=== PATIENT | male | born 1955 | race Caucasian/White ===

== ENCOUNTER 2020-09-20 18:08 | Emergency (ER) | payer MEDICARE, SELFPAY ==
[2020-09-20 18:26] VITALS: BP 188/94; PULSE 93; RESP 16; TEMP 36.7; O2SAT 100
[2020-09-20 18:35] VITALS: BP 188/94; PULSE 93; RESP 16; TEMP 36.7; O2SAT 100
--- NOTE | 2020-09-20 18:45 | ED.DENTAL ---
HPI - Dental/Oral General Chief complaint: Dental/Oral Stated complaint: Dental/Oral Time Seen by Provider: 09/20/20 18:41 Source: patient and RN notes reviewed Mode of arrival: ambulatory Limitations: no limitations History of Present Illness HPI Narrative: 65-year-old male presents with concern for left upper dental pain for 3 days. Reports noticing facial swelling. Reports multiple broken teeth, caries. Reports he saw dentist to have all of his teeth pulled, was not able to afford it. Reports he has had problems with his teeth for many years, has not had an infection for many years. Denies any drooling, difficulty swallowing, headache MD Complaint: tooth pain Related Data Allergies Allergy/AdvReac Type Severity Reaction Status Date / Time No Known Allergies Allergy Verified 09/20/20 18:34 Review of Systems Review of Systems: Narrative: CONSTITUTIONAL: Denies malaise, chills, sweats, or fever. EYES: Denies visual changes ENT: Denies rhinorrhea, congestion, sinus pain, otalgia or sore throat, difficulty swallowing, drooling. Reports left upper dental pain, facial swelling CARDIOVASCULAR: Denies chest pain, palpitations, or edema. RESPIRATORY: Denies cough or dyspnea. SKIN: Denies rash or itching. MUSCULOSKELETAL: Denies myalgia. NEUROLOGIC: Denies numbness, weakness, or headache. All systems reviewed & are unremarkable except as noted in HPI and below PMFSH Comments At time of signature, agree with nursing past medical, surgical, social and family history. There is no relevant family history pertinent to the presenting complaint Exam Narrative: Exam Narrative: GENERAL: Well-appearing, well-nourished, and in no acute distress. HEAD: Normocephalic, atraumatic. EYES: PERRLA, conjunctivae clear ENT: Nares clear. Mucous membranes moist. Oropharynx without edema, erythema or lesions. Tonsils not enlarged and without exudate. Many missing teeth, broken teeth, caries. Left cheek swelling NECK: Supple. No lymphadenopathy. CHEST: No respiratory distress. Speaks in full sentences. HEART: Regular rate and rhythm. SKIN: Warm, dry, no rash. NEURO: Alert and oriented x3. PSYCH: Normal mood and affect Course Course Emergency Course: Patient is aware of diagnosis, understands and agrees to treatment plan. Anticipatory guidance given. Patient agrees to follow-up as directed and is aware of reasons to seek care at the emergency department. Portions of this record may have been created with voice recognition software Vital Signs Vital signs: Vital Signs Temperature 98.1 F 09/20/20 18:26 Pulse Rate 93 09/20/20 18:26 Respiratory Rate 16 09/20/20 18:26 Blood Pressure 188/94 H 09/20/20 18:26 Pulse Oximetry 100 09/20/20 18:26 Temperature 98.1 F 09/20/20 18:35 Pulse Rate 93 09/20/20 18:35 Respiratory Rate 16 09/20/20 18:35 Blood Pressure 188/94 H 09/20/20 18:35 Pulse Oximetry 100 09/20/20 18:35 Reviewed. Pt has been instructed to follow up with his primary care provider within the next week regarding his elevated blood pressure today. MDM - Dental/Oral MDM Narrative Medical decision making narrative: Patients pain and complaint coupled with physical findings are consistant with dentalgia. There are no focal signs of space occupying lesions that are compromising to the airway; no dysphagia, odynophagia, dysphonia, or dyspnea. No uvular deviation or soft palate edema. Patient is non-toxic appearing. The floor of the mouth is soft with no signs of Juan's Angina; no induration below mandible, no neck pain. Patient is without trismus or drooling and able to swallow secretions. Patient is felt appropriate for discharge home with dental follow up. Critical Care Time Critical Care Time Critical Care Time: No Discharge Plan Discharge Clinical Impression: Dental abscess Patient Disposition: Home, Self-Care Condition: Stable Instructions: Antibiotic Form, Dental Abscess (ED) Additiona
== END 2020-09-20 18:53 | disposition home or self-care (01) ==
PROVIDERS: Emergency Provider Nurse Practitioner
DX: K04.7 Periapical abscess without sinus (principal)
CPT/HCPCS: 99213; G0463

== ENCOUNTER 2023-01-10 15:29 | Outpatient (CLI) | payer MEDICARE, SELFPAY ==
[2023-01-10 18:52] LABS: Alanine Aminotransferase 28 U/L (6-50); Albumin Level 4.3 g/dL (3.5-5.1); Alkaline Phosphatase 67 U/L (38-126); Anion Gap 3 mmol/L (8-16); Aspartate Amino Transferase 37 U/L (17-59); Bilirubin,Total 0.9 mg/dL (0.2-1.3); Blood Urea Nitrogen 13 mg/dL (9-20); Calcium 9.1 mg/dL (8.4-10.2); Carbon Dioxide 32 mmol/L (22-30); Chloride 103 mmol/L (98-107); Estimated Glomerular Filt Rate > 60; Glucose 119 mg/dL (65-110); Potassium 4.1 mmol/L (3.4-5.0); Sodium 138 mmol/L (137-145)
[2023-01-10 19:21] LABS: Cholesterol 207 mg/dL (0-200); HDL Direct 30 mg/dL; Triglycerides 195 mg/dL (<150)
[2023-01-10 19:24] LABS: Basophils Percent Auto 0.5 % (0.2-1.2); Eosinophils Absolute Auto 0.1 K/mm3 (0-0.3); Eosinophils Percent Auto 1.5 % (0-4.4); Hematocrit 46.6 % (42.0-52.0); Hemoglobin 15.7 g/dL (14.0-18.0); Immature Granulocyte Absolute 0.07 K/mm3 (0.00-0.031); Immature Granulocyte Percent A 0.9 % (0-0.5); Lymphocytes Absolute Auto 2.76 K/mm3 (0.9-3.2); Lymphocytes Percent Auto 34.9 % (18.3-44.2); Mean Corpuscular HGB Conc 33.7 g/dl (32-36); Mean Corpuscular Hemoglobin 31.6 pg (26-34); Mean Corpuscular Volume 93.8 fl (80-100); Mean Platelet Volume 9.8 fl (7.4-10.4); Monocytes Absolute Auto 0.7 K/mm3 (0.1-0.6); Monocytes Percent Auto 8.9 % (2.6-8.5); Neutrophils Absolute Auto 4.2 K/mm3 (1.3-6.7); Neutrophils Percent Auto 53.3 % (45.5-73.1); Platelet Count Result 250 k/mm3 (150-375); Red Blood Count 4.97 M/mm3 (4.6-6.20); Red Cell Distribution Width 12.8 % (11.5-14.5); White Blood Count 7.9 K/mm3 (4.5-10.0)
[2023-01-10 19:32] LABS: LDL Cholesterol Direct 133 mg/dL
[2023-01-10 19:53] LABS: Prostate Specific Antigen 5.4 ng/mL (< OR = 4.0)
== END 2023-01-10 15:30 | disposition home or self-care (01) ==
PROVIDERS: PCP Family Medicine; Visit Provider Family Medicine
DX: Z00.00 Encounter for general adult medical examination without abnormal findings (principal); Z12.5 Encounter for screening for malignant neoplasm of prostate; Z87.39 Personal history of other diseases of the musculoskeletal system and connective tissue; Z79.899 Other long term (current) drug therapy
CPT/HCPCS: 36415; 80053; 80061; 82607; 84153; 85025; G0103

== ENCOUNTER 2023-01-22 09:02 | Outpatient (CLI) | payer MEDICARE, SELFPAY ==
[2023-01-22 18:58] LABS: Hemoglobin A1C 5.7 % (<5.7)
== END 2023-01-22 09:03 | disposition home or self-care (01) ==
PROVIDERS: PCP Family Medicine; Visit Provider Family Medicine
DX: N40.0 Benign prostatic hyperplasia without lower urinary tract symptoms (principal); R73.09 Other abnormal glucose; R97.20 Elevated prostate specific antigen [PSA]; Z12.5 Encounter for screening for malignant neoplasm of prostate
CPT/HCPCS: 36415; 83036; 84153; G0103

== ENCOUNTER 2023-02-21 01:11 | Day surgery (SDC) | payer MEDICARE, SELFPAY ==
[2023-02-07 13:15] VITALS: BMI 23.4
[2023-02-21 08:22] VITALS: BP 171/82; PULSE 63; RESP 18; TEMP 36.4; O2SAT 100; BMI 22.9
[2023-02-21] MEDS: LACTATED RINGERS 1,000 ML 150 ML IV CONT (08:47)
--- NOTE | 2023-02-21 08:54 | P.HP_ITS ---
History of Present Illness History of Present Illness Consent: Risks, benefits, and alternatives have been discussed and questions answered. Patient agrees to proceed with procedure. Chief complaint: positive cologuard test Narrative: Venancio Garibay is a 67 year old male Presents for screening colonoscopy. Patient found to have positive Cologuard test. Patient reports that his current weight appetite and bowel movements are normal. Patient denies abdominal pain. He has had no bleeding. Family history noncontributory. Review of Systems Review of Systems: Review of systems noncontributory. [facility] Past Medical History Medical History Preventative health care Family History Family History Father Lung cancer Social History Social History Smoking packs per day: 1 Smoking cigarettes per day: 20.0 Years smoked: 56 Smoking pack-years: 56.00 Smoking status: Current every day smoker Tobacco type: cigarettes Alcohol intake: current Alcohol use details: Beer Substance use: never Substance use type: does not use Lack of Transportation: No Lack of Food: Never True Current Housing: I Have Housing Concerned About Future Housing: No Difficulty Paying Gas/Electric Bills: No Difficulty Paying for Meds: No Currently Unemployed: Decline to Answer Education: High School Diploma/GED Difficulty w/ Childcare or Family Care: No Living arrangements: with family Gender identity (if verbalized by the patient): Male Spiritual care concerns: No Agree to blood products: No Meds Home Medications and Allergies Home Medications Medication Instructions Recorded Confirmed Type metoprolol succinate 25 mg 25 mg PO DAILY #90 tabs 01/10/23 02/07/23 Rx tablet,extended release 24 hr amlodipine 10 mg tablet 10 mg PO DAILY 30 days #30 tabs 02/05/23 02/07/23 Rx Allergies Allergy/AdvReac Type Severity Reaction Status Date / Time No Known Allergies Allergy Verified 02/07/23 13:14 Vital Signs Vital Signs - 24 hr 02/21/23 08:22 Temperature 97.6 F Pulse Rate 63 Respiratory Rate 18 Blood Pressure 171/82 H Pulse Oximetry 100 Oxygen Delivery Room Air Exam Narrative: Physical exam reveals patient to be alert. Vital signs stable. HEENT exam is unremarkable. Patient is anicteric. Lungs are clear to auscultation and percussion. Heart is without murmur or extra sounds. Abdomen bowel sounds are present soft nontender with no hepatosplenomegaly. Digital external rectal exam is normal. Assessment and Plan Assessment and plan (1) Positive colorectal cancer screening using Cologuard test: Code(s): R19.5 - Other fecal abnormalities Status: Acute Assessment and Plan: Screening colonoscopy to be performed today because of positive Cologuard test. Further recommendations may be given after endoscopy.
--- NOTE | 2023-02-21 09:04 | P.PNAN_ITS ---
Anes - Initial Pre Proc Eval Procedure: Operation Date: 02/21/23 09:45 Proposed Procedures p Colonoscopy - Emile Cox MD Date/Time: 02/21/23 09:04 Surgeon: Emile Cox MD Pre Op Diagnosis: positive cologuard test Patient Data Age: 67 Gender: M Height: 1.91 m Weight: 83.3 kg Last Vital Signs Temp 97.6 F 02/21/23 08:22 Pulse 63 02/21/23 08:22 Resp 18 02/21/23 08:22 BP 171/82 H 02/21/23 08:22 Pulse Ox 100 02/21/23 08:22 O2 Del Method Room Air 02/21/23 08:22 Allergies Allergy/AdvReac Type Severity Reaction Status Date / Time No Known Allergies Allergy Verified 02/07/23 13:14 Home Medications Medication Instructions Recorded Confirmed Type metoprolol succinate 25 mg 25 mg PO DAILY #90 tabs 01/10/23 02/07/23 Rx tablet,extended release 24 hr amlodipine 10 mg tablet 10 mg PO DAILY 30 days #30 tabs 02/05/23 02/07/23 Rx Patient hx anesthesia problems: none Family hx anesthesia problems: none Results Review: All pre-operative results and documents have been reviewed as part of the pre- operative evaluation. [facility] Past Medical History Medical History Preventative health care Family History Family History Father Lung cancer Social History Social History Smoking packs per day: 1 Smoking cigarettes per day: 20.0 Years smoked: 56 Smoking pack-years: 56.00 Smoking status: Current every day smoker Tobacco type: cigarettes Alcohol intake: current Alcohol use details: Beer Substance use: never Substance use type: does not use Lack of Transportation: No Lack of Food: Never True Current Housing: I Have Housing Concerned About Future Housing: No Difficulty Paying Gas/Electric Bills: No Difficulty Paying for Meds: No Currently Unemployed: Decline to Answer Education: High School Diploma/GED Difficulty w/ Childcare or Family Care: No Living arrangements: with family Gender identity (if verbalized by the patient): Male Spiritual care concerns: No Agree to blood products: No Anes - Eval Final PreProcedure Day of Procedure 02/21/23 09:04 Patient weight: normal Heart: regular rate and rhythm Lungs: clear to auscultation Airway: Mallampati scale class II Neurological: alert and oriented Last oral intake: >/= 8 hours ASA classification: II Emergent: no Anesthetic plan: proceed Anesthesia type and monitoring: general GIVS and standard monitoring Results Review: All pre-operative results and documents have been reviewed as part of the pre- operative evaluation. Informed Consent: The patient's anesthetic plan and its attendant risks and benefits were discussed with the patient/family/POA. Questions were solicited and answers provided to the satisfaction of the patient/family/POA.
[2023-02-21] MEDS: SIMETHICONE ORAL SUSPENSION 20 MG/0.3 ML 30 ML BOTTLE 0.6 ML IRRIGATION (09:52)
[2023-02-21 10:05] VITALS: BP 112/65; PULSE 61; RESP 21; O2SAT 98
[2023-02-21 10:15] VITALS: BP 124/77; PULSE 52; RESP 21; O2SAT 98
[2023-02-21 10:25] VITALS: BP 126/75; PULSE 58; RESP 20; O2SAT 99
== END 2023-02-21 10:35 | disposition home or self-care (01) ==
PROVIDERS: PCP Family Medicine; Visit Provider Internal Medicine Gastroenterology
PROC: 0DJD8ZZ Inspection of Lower Intestinal Tract, Via Natural or Artificial Opening Endoscopic (ICD-10-PCS; CPT 45378; principal; 2023-02-21 09:45)
DX: Z12.11 Encounter for screening for malignant neoplasm of colon (principal); R19.5 Other fecal abnormalities; K64.8 Other hemorrhoids; K57.30 Diverticulosis of large intestine without perforation or abscess without bleeding; F17.210 Nicotine dependence, cigarettes, uncomplicated
CPT/HCPCS: G0121; J2704; J7120

== ENCOUNTER 2023-03-04 15:37 | Outpatient (CLI) | payer MEDICARE, SELFPAY ==
[2023-03-04 20:21] LABS: Vitamin D 25 Hydroxy 28.8 ng/mL
== END 2023-03-04 15:38 | disposition home or self-care (01) ==
PROVIDERS: PCP Family Medicine; Visit Provider Nurse Practitioner Family
DX: Z79.899 Other long term (current) drug therapy (principal)
CPT/HCPCS: 36415; 82306

== ENCOUNTER 2024-07-14 13:06 | Outpatient (CLI) | payer MEDICARE, SELFPAY ==
--- NOTE | ~2024-07-14 | XR_ITS ---
XR abdomen obstructive series Ordering provider: Harry Jackman MD History: . R10.9 - Unspecified abdominal pain DIARRHEA . Comparison: None. FINDINGS: BOWEL: Nonobstructive bowel gas pattern. ORGANOMEGALY: None. SIGNIFICANT PATHOLOGIC CALCIFICATIONS: None. OTHER: No free air is seen under the diaphragm. Degenerative the spine. IMPRESSION: NO ACUTE ABDOMINAL FINDINGS. Reviewed, dictated and finalized at location A.
[2024-07-14 14:29] LABS: Hematocrit 45.3 % (42.0-52.0); Hemoglobin 15.9 g/dL (14.0-18.0); Mean Corpuscular HGB Conc 35.1 g/dl (32-36); Mean Corpuscular Hemoglobin 32.1 pg (26-34); Mean Corpuscular Volume 91.3 fl (80-100); Mean Platelet Volume 9.1 fl (7.4-10.4); Platelet Count Result 252 k/mm3 (150-375); Red Blood Count 4.96 M/mm3 (4.6-6.20); Red Cell Distribution Width 13.2 % (11.5-14.5)
[2024-07-14 14:43] LABS: Alanine Aminotransferase 21 U/L (6-50); Albumin Level 4.2 g/dL (3.5-5.1); Alkaline Phosphatase 63 U/L (38-126); Anion Gap 9 mmol/L (4-12); Aspartate Amino Transferase 27 U/L (17-59); Bilirubin,Total 0.3 mg/dL (0.2-1.3); Blood Urea Nitrogen 13 mg/dL (9-20); Calcium 9.5 mg/dL (8.4-10.2); Carbon Dioxide 24 mmol/L (22-30); Chloride 104 mmol/L (98-107); Estimated Glomerular Filt Rate > 60; Glucose 140 mg/dL (65-110); Potassium 3.9 mmol/L (3.4-5.0); Sodium 137 mmol/L (137-145)
[2024-07-14 15:01] LABS: Vitamin D 25 Hydroxy 37.9 ng/mL
[2024-07-14 15:47] LABS: Hemoglobin A1C 6.1 % (<5.7)
== END 2024-07-14 13:07 | disposition home or self-care (01) ==
LOC: ANHIMG 13:10
PROVIDERS: PCP Family Medicine; Visit Provider Family Medicine
DX: R10.9 Unspecified abdominal pain (principal); K59.00 Constipation, unspecified; N40.0 Benign prostatic hyperplasia without lower urinary tract symptoms; G25.81 Restless legs syndrome; R73.03 Prediabetes; E55.9 Vitamin D deficiency, unspecified
CPT/HCPCS: 36415; 74019; 80053; 82306; 83036; 85027

== ENCOUNTER 2024-08-10 08:32 | Outpatient (CLI) | payer MEDICARE, SELFPAY ==
[2024-08-14 18:48] LABS: Testosterone Total 616 ng/dL (250-1100)
== END 2024-08-10 08:33 | disposition home or self-care (01) ==
PROVIDERS: PCP Family Medicine; Visit Provider Family Medicine
DX: R79.89 Other specified abnormal findings of blood chemistry (principal)
CPT/HCPCS: 36415; 84403

== ENCOUNTER 2024-08-26 01:15 | Day surgery (SDC) | payer MEDICARE, SELFPAY ==
[2024-08-18 08:58] VITALS: BMI 24.4
[2024-08-26 09:26] VITALS: BP 160/87; PULSE 62; RESP 18; TEMP 36; O2SAT 100; BMI 23.7
[2024-08-26] MEDS: LACTATED RINGERS 1,000 ML 150 ML IV CONT (09:35)
--- NOTE | 2024-08-26 09:51 | PM.HPGS ---
History of Present Illness History of Present Illness Consent: Risks, benefits, and alternatives have been discussed and questions answered. Patient agrees to proceed with procedure. Chief complaint: abdominal pain Narrative: Venancio Garibay is a 69 year old male here for first egd, few weeks of intermittent abdominal cramping, bloating and diarrhea. Had colonoscopy last year Review of Systems Review of Systems: All systems reviewed & are unremarkable except as noted in HPI and below PMFSH Past Medical History Medical History (Updated 08/26/24 @ 09:52 by Sean Cortes MD) Bloating Preventative health care Family History Family History Father Lung cancer Social History Social History Smoking packs per day: 0.75 Smoking cigarettes per day: 15.0 Years smoked: 56 Smoking pack-years: 42.00 Smoking status: Current every day smoker Tobacco type: cigarettes Alcohol intake: current Alcohol use details: once or twice a month Substance use: never Substance use type: does not use Lack of Transportation: No Lack of Food: Never True Current Housing: I Have Housing Concerned About Future Housing: No Difficulty Paying Gas/Electric Bills: No Difficulty Paying for Meds: No Currently Unemployed: Decline to Answer Education: High School Diploma/GED Difficulty w/ Childcare or Family Care: No Living arrangements: alone Gender identity (if verbalized by the patient): Male Spiritual care concerns: No Agree to blood products: No Meds Home Medications and Allergies Home Medications Medication Instructions Recorded Confirmed Type ropinirole 0.25 mg tablet 0.25 mg PO QHS #90 tabs 05/20/24 08/26/24 Rx amlodipine 10 mg tablet 10 mg PO DAILY 30 days #90 tabs 08/11/24 08/26/24 Rx famotidine 40 mg tablet 40 mg PO DAILY #90 tabs 08/11/24 08/26/24 Rx metoprolol succinate 25 mg 25 mg PO DAILY #90 tabs 08/11/24 08/26/24 Rx tablet,extended release 24 hr Allergies Allergy/AdvReac Type Severity Reaction Status Date / Time No Known Allergies Allergy Verified 08/26/24 09:24 Vital Signs Vital Signs - 24 hr 08/26/24 09:26 Temperature 96.8 F L Pulse Rate 62 Respiratory Rate 18 Blood Pressure 160/87 H Pulse Oximetry 100 Oxygen Delivery Room Air Exam Const: General: comfortable and no acute distress HENMT: Face/Nose/Sinus: Normal nares present Eyes: General: appearance normal, both eyes and all related structures Neck: Neck: no JVD Resp: Auscultation: clear to auscultation bilaterally Cardio: Rate: regular rate Rhythm: regular rhythm GI: Inspection: non-distended GI Palp: Yes Soft to palpation Skin: General skin exam: normal color Neuro: General: gait normal Speech: normal speech Extrem: General: normal to inspection Psych: Mental Status: mental status grossly normal Assessment and Plan Assessment and plan (1) Abdominal cramping: Code(s): R10.9 - Unspecified abdominal pain Status: Acute Assessment and Plan: egd with bx (2) Bloating: Code(s): R14.0 - Abdominal distension (gaseous) Status: Acute
--- NOTE | 2024-08-26 10:08 | P.PNAN_ITS ---
Anes - Initial Pre Proc Eval Procedure: Operation Date: 08/26/24 10:00 Proposed Procedures p Esophagogastroduodenoscopy - Sean Cortes MD Date/Time: 08/26/24 10:08 Surgeon: Sean Cortes MD Pre Op Diagnosis: abdominal pain Patient Data Age: 69 Gender: M Height: 1.88 m Weight: 83.8 kg Last Vital Signs Temp 36.0 C L 08/26/24 09:26 Pulse 62 08/26/24 09:26 Resp 18 08/26/24 09:26 BP 160/87 H 08/26/24 09:26 Pulse Ox 100 08/26/24 09:26 O2 Del Method Room Air 08/26/24 09:26 Allergies Allergy/AdvReac Type Severity Reaction Status Date / Time No Known Allergies Allergy Verified 08/26/24 09:24 Home Medications Medication Instructions Recorded Confirmed Type ropinirole 0.25 mg tablet 0.25 mg PO QHS #90 tabs 05/20/24 08/26/24 Rx amlodipine 10 mg tablet 10 mg PO DAILY 30 days #90 tabs 08/11/24 08/26/24 Rx famotidine 40 mg tablet 40 mg PO DAILY #90 tabs 08/11/24 08/26/24 Rx metoprolol succinate 25 mg 25 mg PO DAILY #90 tabs 08/11/24 08/26/24 Rx tablet,extended release 24 hr Patient hx anesthesia problems: none Family hx anesthesia problems: none Results Review: All pre-operative results and documents have been reviewed as part of the pre- operative evaluation. [facility] Past Medical History Medical History (Updated 08/26/24 @ 10:09 by Nii Marina CRNA) Arthritis Bloating HTN (hypertension) Preventative health care Family History Family History Father Lung cancer Social History Social History Smoking packs per day: 0.75 Smoking cigarettes per day: 15.0 Years smoked: 56 Smoking pack-years: 42.00 Smoking status: Current every day smoker Tobacco type: cigarettes Alcohol intake: current Alcohol use details: once or twice a month Substance use: never Substance use type: does not use Lack of Transportation: No Lack of Food: Never True Current Housing: I Have Housing Concerned About Future Housing: No Difficulty Paying Gas/Electric Bills: No Difficulty Paying for Meds: No Currently Unemployed: Decline to Answer Education: High School Diploma/GED Difficulty w/ Childcare or Family Care: No Living arrangements: alone Gender identity (if verbalized by the patient): Male Spiritual care concerns: No Agree to blood products: No Anes - Eval Final PreProcedure Day of Procedure 08/26/24 10:08 Patient weight: normal Heart: regular rate and rhythm Lungs: clear to auscultation Airway: Mallampati scale class II Neurological: alert and oriented Last oral intake: >/= 8 hours ASA classification: III Emergent: no Anesthetic plan: proceed Anesthesia type and monitoring: general GIVS Results Review: All pre-operative results and documents have been reviewed as part of the pre- operative evaluation. Informed Consent: The patient's anesthetic plan and its attendant risks and benefits were discussed with the patient/family/POA. Questions were solicited and answers provided to the satisfaction of the patient/family/POA.
[2024-08-26 10:22] VITALS: BP 100/62; PULSE 68; RESP 24; O2SAT 97
[2024-08-26 10:32] VITALS: BP 124/74; PULSE 65; RESP 20; O2SAT 98
[2024-08-26 10:42] VITALS: BP 138/83; PULSE 57; RESP 22; O2SAT 98
== END 2024-08-26 11:05 | disposition home or self-care (01) ==
PROVIDERS: PCP Emergency Medicine; Visit Provider Internal Medicine Gastroenterology
PROC: 0DJ08ZZ Inspection of Upper Intestinal Tract, Via Natural or Artificial Opening Endoscopic (ICD-10-PCS; CPT 43235; principal; 2024-08-26 10:00)
DX: K21.00 Gastro-esophageal reflux disease with esophagitis, without bleeding (principal); K22.2 Esophageal obstruction; K29.70 Gastritis, unspecified, without bleeding; R19.7 Diarrhea, unspecified; I10 Essential (primary) hypertension; F17.210 Nicotine dependence, cigarettes, uncomplicated
CPT/HCPCS: 43249; 43239; 88305; J2704; J7120

== ENCOUNTER 2024-10-19 12:30 | Outpatient (CLI) | payer MEDICARE, SELFPAY ==
--- NOTE | ~2024-10-19 | XR_ITS ---
EXAMINATION: XR chest 2V 10/19/2024 13:20 INDICATION: Back pain PROCEDURE: 2 view chest COMPARISON: No prior studies for comparison. FINDINGS: The lungs are clear. The cardiomediastinal silhouette is within normal limits. There are no pleural effusions. There is no pneumothorax suspected. IMPRESSION: 1: NO ACUTE CARDIOPULMONARY DISEASE. Reviewed, dictated and finalized at location B. SOURCE ANALYST
--- NOTE | ~2024-10-19 | XR_ITS ---
EXAMINATION: XR lumbar spine 2-3V DATE: 10/19/2024 13:19 INDICATION: Chronic back pain. TECHNIQUE: 3 views of lumbar spine were obtained. COMPARISON: Lumbar spine radiographs 07/11/2008 FINDINGS: There is 4 mm retrolisthesis of L3 on L4. There is mild chronic anterior wedging of L1 and L3 vertebral bodies. There is mildly decreased disc height at L2-L3, severely decreased disc height a t L3-L4, and moderately decreased disc height at L5-S1. There is multilevel mild to moderate facet tara int osteoarthritis. IMPRESSION: 1. Severe lumbar spondylosis. Reviewed, dictated and finalized at location A. [employer]
--- NOTE | ~2024-10-19 | XR_ITS ---
XR hip RT min 2V 10/19/2024 13:20 Indication: Right hip pain. No injury. Procedure: 2 views right hip Comparison: No prior studies for comparison. Findings: Mild osteoarthritis of the right hip. No fracture, subluxation or dislocation. No soft tiss ue abnormality. Impression: 1: Mild osteoarthritis. Reviewed, dictated and finalized at location B. QUALITY TECHNICIAN Impression: 1: Mild osteoarthritis.
--- NOTE | ~2024-10-19 | XR_ITS ---
XR hip LT min 2V 10/19/2024 13:19 Indication: Chronic left hip pain. Procedure: 2 views left hip Comparison: No prior studies for comparison. Findings: Mild osteoarthritis. Prominent lateral osteophyte of the acetabulum. No fracture or traumat ic malalignment. No foreign bodies. Impression: 1: Mild osteoarthritis. Reviewed, dictated and finalized at location B. REPAIR MECHANIC Impression: 1: Mild osteoarthritis.
[2024-10-19 13:46] LABS: Hematocrit 46.3 % (42.0-52.0); Hemoglobin 16.2 g/dL (14.0-18.0); Mean Corpuscular Hemoglobin 31.6 pg (26-34); Mean Corpuscular Volume 90.4 fl (80-100); Mean Platelet Volume 9.1 fl (7.4-10.4); Platelet Count Result 290 k/mm3 (150-375); Red Blood Count 5.12 M/mm3 (4.6-6.20); Red Cell Distribution Width 13.2 % (11.5-14.5); White Blood Count 6.5 K/mm3 (4.5-10.0)
[2024-10-19 13:48] LABS: Add Urine Microscopic? NO; Appearance Urine Clear (Clear); Bilirubin Urine Negative (Negative); Blood Urine Negative (Negative); Color Urine Yellow (Yellow); Glucose Urine UA Negative (Negative); Ketones Urine Negative (Negative); Leukocyte Esterase Ur Negative LEU/UL (Negative); Nitrate Urine Negative (Negative); Protein Urine Negative (Negative); Specific Grav Ur 1.016 (1.001-1.035); Urobilinogen Urine 0.2 mg/dL (<2.0)
[2024-10-19 13:59] LABS: Hemoglobin A1C 6.1 % (<5.7)
[2024-10-19 14:12] LABS: Alanine Aminotransferase 24 U/L (6-50); Albumin Level 4.4 g/dL (3.5-5.1); Alkaline Phosphatase 65 U/L (38-126); Anion Gap 6 mmol/L (4-12); Aspartate Amino Transferase 24 U/L (17-59); Bilirubin,Total 0.6 mg/dL (0.2-1.3); Blood Urea Nitrogen 12 mg/dL (9-20); Calcium 9.8 mg/dL (8.4-10.2); Carbon Dioxide 31 mmol/L (22-30); Chloride 103 mmol/L (98-107); Cholesterol 246 mg/dL (0-200); Estimated Glomerular Filt Rate > 60; Glucose 120 mg/dL (65-110); HDL Direct 45 mg/dL; LDL Cholesterol Direct 149 mg/dL; Potassium 4.6 mmol/L (3.4-5.0); Sodium 140 mmol/L (137-145); Triglycerides 180 mg/dL (<150)
[2024-10-19 14:25] LABS: Free T4 Free Thyroxine 0.85 ng/dL (0.78-2.19); Vitamin D 25 Hydroxy 76.4 ng/mL
[2024-10-19 14:32] LABS: Prostate Specific Antigen 6.1 ng/mL (< OR = 4.0)
[2024-10-19 14:37] LABS: Hepatitis B Surface Antigen Negative (Negative)
[2024-10-19 14:41] LABS: Creatinine Urine 170.9 mg/dL
[2024-10-19 14:43] LABS: HAV RESULT Negative (Negative); Hepatitis B Core IgM Result Negative (Negative)
[2024-10-19 14:48] LABS: MALB Creatinine Ratio < 3.5 mg/g (0-30); Microalbumin Urine Random < 6.0 mg/L (0-16.7)
[2024-10-19 14:55] LABS: Hepatitis C Virus Antibody Negative (Negative)
== END 2024-10-19 12:31 | disposition home or self-care (01) ==
PROVIDERS: PCP Emergency Medicine; Visit Provider Emergency Medicine
DX: M16.0 Bilateral primary osteoarthritis of hip (principal); M47.816 Spondylosis without myelopathy or radiculopathy, lumbar region; I10 Essential (primary) hypertension; K21.00 Gastro-esophageal reflux disease with esophagitis, without bleeding; G25.81 Restless legs syndrome; Z79.899 Other long term (current) drug therapy
CPT/HCPCS: 36415; 71046; 72100; 73502; 80053; 80061; 80074; 81003; 82043; 82306; 83036; 84153; 84439; 84443; 85027; G0103